=== PATIENT | male | born 1955 | race Caucasian/White ===

== ENCOUNTER 2021-08-15 01:48 | Inpatient (IN) | payer MEDICARE ==
[~2021-08-15] VITALS: Ht 172.7 cm; Wt 71.4 kg
--- NOTE | 2021-08-15 05:50 | NUR ---
ARRIVAL PT ARRIVED WITH [email or web address] AND [facility]. PT HAS TRACH WITH 4L TRACH MASK. HE IS ON LEVOPHED 9MCG/KG/MIN AND PRECEDEX 0.2MCG/KG/HR. HE HAS AN 18G IV IN THE RAC, 20G IN L SHOULDER. HE HAS A MEDIPORT THAT HAS NOT BEEN ACCESSED. PT IS AWAKE BUT DROWSY, ANSWERS QUESTIONS BY NODDING/SHAKING HEAD. DR JACOBS AT BEDSIDE FOR EVAL.
[2021-08-15] MEDS ORDERED: ACET325 PT (06:13)
[2021-08-15] MEDS ORDERED: DOC250 PT (06:14)
[2021-08-15] MEDS ORDERED: MULVITB PT (06:15)
[2021-08-15] MEDS ORDERED: GABA100 PT (06:16)
[2021-08-15] MEDS ORDERED: LEVSOD75 PT (06:17)
[2021-08-15] MEDS ORDERED: LIDO5TO TOP (06:18)
[2021-08-15] MEDS ORDERED: Ativan1 MG PT (06:19)
[2021-08-15] MEDS ORDERED: CENTRUM SILVER1 EAC2 PO (11:07)
[2021-08-15] MEDS ORDERED: Percocet 5-3251 EACH PT (11:09)
[2021-08-15] MEDS ORDERED: BISA10S PR (11:12)
[2021-08-15] MEDS ORDERED: Fleet Enema132 ML PR (11:13)
[2021-08-15] MEDS ORDERED: GUAI200 PT (11:13)
[2021-08-15] MEDS ORDERED: DULCOLAX400 MG/5 M PT (11:17)
--- NOTE | 2021-08-15 16:59 | NUR ---
FOLLOWING LONG CONVERSATION WITH PALLIATIVE CARE, PT HAS REQUESTED TO TRANSITION TO COMFORT CARE. PT REPORTS STOMACH FEELS LIKE A VOLCANO, BUBBLING SEEN AROUND PEG TUBE. PT'S SISTER AND DAUGHTER AT BEDSIDE, SUPPORTIVE OF NEW PLAN OF CARE. PT MEDICATED FOR COMFORT, SLEEPING WELL.
--- NOTE | 2021-08-15 17:25 | NUR ---
Extensive conversation with patients sister about the trajectory of the past six months. Pt has continued to decline he did accept one more round of immunosuppressive therapy. He did decline further radiation. pt has an advsnce directive, polst and poa. His sister brought in copies and a polst and she is the poa and decision maker followed by his son. vist with pt and assessment and assited with cleaning pt having loose stools. pt abdomen is distended and looks like tube feed leaking around peg. 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 He stated that every time we move him it feels slike a volcano going off in his gut he has a headache and nausea and has had trouble sleeping. Blunt conversation about his stated withses in the past and his suffering. pt is having tachycardia and QT changes and chronic hypotension. He does not sleep due to air hunger and pain. We dicussed comfort care and hospice. Pt agreed it is time. updated hospitalist and orders placed will continue some antibiotics for sepsis and hospefully comfort. Will suggest some ativan tonight so he can get some sleep. Family at bedside. hospice referal placed pt may not transtion to outpatient care due to infection and hypotension.
--- NOTE | 2021-08-15 19:30 | NUR ---
PT REPORT RECIEVED, ORDERS REVIEWED. PT IS CURRENTLY QUIET WITH EYES CLOSED AND APEAR TO BE COMFORTABLY ASLEEP. PT NOT DISTERBED AT THIS TIME. CALL LIGHT NOTED TO BE NEAR PT'S HAND.
--- NOTE | 2021-08-15 21:17 | NUR ---
2105- SB[facility] PT REPORT CALLED TO [facility]. ASCENCIO ON MEDICAL FLOOR. PT AWAKE AND ENDORSES PAIN. MORPHINE SULPHATE 2MG GIVEN IV PRIOR TO PT LEAVING ICU ROOM.
--- NOTE | 2021-08-16 00:04 | NUR ---
RT CALLED TO EVALUATE NEED FOR TRACH SUCTIONING. AFTER SETTING PATIENT UP WITH SUCTION. PATIENT SUCTIONED HIMSELF HE DOES AT HOME.
--- NOTE | 2021-08-16 03:53 | NUR ---
Patient non verbal, but understands commands and is able to assist with turning and changing. Suction set up in room, and patient suctions himself as needed, as he does at home. Roxynol working well for discomfort, and has not needed any other hospice medication on this shift. Fresh Mepilex over sacral area after loose stool. Area appears more shearing or abrasions than pressure wound. Patient waiting to be discharged home with sister on Hospice.
--- NOTE | 2021-08-16 04:44 | NUR ---
02 PLACED 1L PER NASAL CANULLA FOR INCREASED SOB NOT RESOLVED WITH ROXYNOL.
--- NOTE | 2021-08-16 09:29 | NUR ---
COMFORT CARE PATIENT RESTING COMFORTABLY. DOES NOT OPEN EYES TO VERBAL COMMAND. NO MOANING OR SIGNS OF DISTRESS. RECEIVING IV ANTIBIOTICS. WILL CONTINUE TO MONITOR.
--- NOTE | 2021-08-16 15:56 | NUR ---
pt progressing and eminent family cme in they are going to stay with him tonight. His son is coming from [place]. IV antibiotic stapped pt not on oxygen. cofort cart ordered and quilt placed and neck pillow. funneral home information given to nursing paint line production supervisor.
--- NOTE | 2021-08-16 16:33 | NUR ---
COMFORT CARE PATIENT ON COMFORT CARE RESTING COMFORTABLY. PATIENT DOES OPEN EYES OR RESPOND TO VERBAL STIMULI AND SHOWS NO SIGN OF DISCOMFORT DURING REPOSITIONING AND CHANGING. MEPELIX DRESSING CHANGED ON SACRAL WOUND. FAMILY AT PATIENTS BEDSIDE AND HAS ELECTED TO STOP IV ANTIBIOTICS. MEDICATED X1 FOR AIR HUNGER. WILL CONTINUE TO MONITOR.
--- NOTE | 2021-08-16 17:38 | NUR ---
SHIFT SUMMARY PATIENT ON COMFORT CARE. RESTING COMFORTABLY. MEDICATED FOR AIR HUNGER X2 T/O SHIFT. PATIENT IS UNAROUSABLE. SACRAL DRESSING CHANGED THIS SHIFT. FAMILY AT BEDSIDE. WILL CONTINUE TO MONITOR.
--- NOTE | 2021-08-16 19:56 | NUR ---
family at bedside pt progressing. Will kevin closely.
--- NOTE | 2021-08-16 23:34 | NUR ---
Patient at 2219. Sister Refugio present at the time of . Children will be in to visit patient prior to notification of home
== END 2021-08-16 22:20 | DRG 871 ==
LOC: ICUE 05:42 → MEDS 21:20
PROVIDERS: ADMIT Internal Medicine
PROC: 3E03329 Introduction of Other Anti-infective into Peripheral Vein, Percutaneous Approach (ICD-10-PCS; principal; 2021-08-15)
PROC: 3E033XZ Introduction of Vasopressor into Peripheral Vein, Percutaneous Approach (ICD-10-PCS; 2021-08-15)
DX: A41.9 Sepsis, unspecified organism (principal); R65.21 Severe sepsis with septic shock; J18.9 Pneumonia, unspecified organism; J96.01 Acute respiratory failure with hypoxia; C79.89 Secondary malignant neoplasm of other specified sites; Z66 Do not resuscitate; Z51.5 Encounter for palliative care; F10.20 Alcohol dependence, uncomplicated; G89.29 Other chronic pain; Z93.0 Tracheostomy status; Z90.89 Acquired absence of other organs; Z85.46 Personal history of malignant neoplasm of prostate; Z85.038 Personal history of other malignant neoplasm of large intestine; Z98.890 Other specified postprocedural states; Z88.8 Allergy status to other drugs, medicaments and biological substances; Z87.891 Personal history of nicotine dependence; Z79.899 Other long term (current) drug therapy
CPT/HCPCS: 36415; 71045; 82565; 83880; 87040; 93005; 93010; A9270; J0692; J1650; J2270; J2405; J3370; J7030; J7040; J7050; J7060